=== PATIENT | male | born 1965 | race African-American/Black ===

== ENCOUNTER 2021-03-01 22:49 | Emergency (ER) | payer OTHER ==
[~2021-03-01] VITALS: Ht 167.6 cm; Wt 66.7 kg
[2021-03-01 23:17] LABS: PLATELET COUNT 109 K/uL (142-355)
[2021-03-01 23:28] LABS: POTASSIUM 3.8 mmol/L (3.6-5.2)
[2021-03-02 01:15] VITALS: BP 150/77; TEMP 98.9
== END 2021-03-02 01:15 | disposition home or self-care (01) ==
LOC: ED 22:49
PROVIDERS: Hospitalist
DX: K02.9 Dental caries, unspecified (principal); K04.7 Periapical abscess without sinus
CPT/HCPCS: 36415; 80048; 80320; 85027; 96365; 96366; 96375; 99284; J0696; J1885; J2405; J3411; J3475; J3490